=== PATIENT | female | born 1975 | race African-American/Black ===

== ENCOUNTER 2020-08-20 23:00 | Inpatient (IN) | payer OTHER, MEDICARE, MEDICAID ==
[2020-08-20] MEDS ORDERED: Norepinephrine 8 MG/0.9% NS 250 ML ONE (23:07)
[2020-08-20 23:21] LABS: #Eosinphils 0.1 thou/uL (0.0-0.7); #Lymphocytes 1.5 thou/uL (1.20-3.40); #Monocytes 1.6 thou/uL (0.11-0.59); %Basophils 0.1 % (0.0-1.0); %Eosinophils 0.5 % (0.0-10.0); %Lymphocytes 11.5 % (21.0-51.0); %Monocytes 11.8 % (0.0-10.0); %Neutrophils 76.1 % (42.0-75.0); Hemoglobin 11.2 g/dL (12.0-16.0); Mean Corpuscular HGB CONC 32.4 g/dL (32.0-36.0); Mean Corpuscular Hemoglobin 30.7 pg (27.0-31.0); Mean Corpuscular Volume 94.8 fL (78.0-98.0); Mean Platelet Volume 7.8 fL (7.4-10.4); Platelet Count 257 thou/uL (130-400); RBC Distribution Width 12.4 % (11.5-14.5); Red Blood Cell (RBC) Count 3.66 mill/uL (4.20-5.40); White Blood Cell (WBC) Count 13.1 thou/uL (4.8-10.8)
[2020-08-20 23:24] LABS: Bacteria/HPF None Seen HPF (None Seen); Bilirubin Negative (Negative); Blood, Urine 1+ (Negative); Clarity Clear (Clear); Glucose, Urine (Dipstick) Normal (Negative); Ketone, Urine Negative (Negative); Leukocyte Negative Leu/uL (Negative); Mucous/LPF Rare LPF (<2+); Nitrite Negative (Negative); Protein, Urine (Dipstick) 70 mg/dL (Neg-Trace); Specific Gravity, Urine 1.044 (1.002-1.036); Squamous Epithelial 0-3 HPF (0-3); pH, Urine 5.5 (5.0-9.0)
[2020-08-20 23:32] LABS: INR-International Normal Ratio 1.1; PTT 23.1 sec (22.9-36.1); Prothrombin Time 13.8 sec (12.0-14.7)
[2020-08-20 23:40] LABS: ALT (SGPT) 34 U/L (8-55); AST (SGOT) 56 U/L (5-34); Albumin 3.3 g/dL (3.5-5.0); Alkaline Phosphatase 54 U/L (40-110); Anion Gap 18 mmol/L (10-20); BUN (Urea Nitrogen) 14 mg/dL (7.0-18.7); Bilirubin, Total 1.1 mg/dL (0.2-1.2); Calc. Creatinine Clearance 0 mL/min (70-130); Calcium 8.1 mg/dL (7.8-10.44); Carbon Dioxide 17 mmol/L (22-29); Chloride 108 mmol/L (98-107); Glucose 160 mg/dL (70-105); Potassium 4.1 mmol/L (3.5-5.1); Protein, Total 6.3 g/dL (6.0-8.3); Sodium 139 mmol/L (136-145)
[2020-08-20] MEDS ORDERED: Norepinephrine 8 MG/0.9% NS 250 ML IVPB SCH (23:45)
[2020-08-21 00:01] LABS: SARS-CoV-2 NAA Rapid Test Not Detected (NotDetected)
[2020-08-21 00:02] LABS: Amphetamine Not Detected (NotDetected); Barbiturates Screen Not Detected (NotDetected); Benzodiazepine Screen Not Detected (NotDetected); Cocaine Metabolite Screen Not Detected (NotDetected); Medtox Control Line Valid? VALID (VALID); Medtox Reader # READER 4; Methadone Not Detected (NotDetected); Methamphetamine Not Detected (NotDetected); Opiate Screen Detected (NotDetected); Oxycodone Screen Not Detected (NotDetected); Phencyclidine (PCP) Not Detected (NotDetected); THC/Cannabinoid Screen Not Detected (NotDetected); Tricyclic Screen Not Detected (NotDetected)
[2020-08-21] MEDS ORDERED: CEFAZOLIN 1 GM VIAL ONE (00:03)
[2020-08-21] MEDS ORDERED: Morphine 4 MG/ML VIAL ONE (01:44)
[2020-08-21] MEDS ORDERED: HumaLOG 300 UNITS/3 ML VIAL SC PRN (01:45)
[2020-08-21] MEDS ORDERED: Dextrose 5% in Water 1,000 ML IV PRN (01:45)
[2020-08-21] MEDS ORDERED: Dextrose 50% Abboject 50 ML SYRINGE SLOW IVP PRN (01:45)
[2020-08-21] MEDS ORDERED: hydrALAZINE 20 MG/ML VIAL SLOW IVP PRN (01:45)
[2020-08-21] MEDS ORDERED: Ondansetron PF 4 MG/2 ML Vial IVP PRN (01:45)
[2020-08-21] MEDS ORDERED: Ondansetron ODT 4 MG TAB PO PRN (01:45)
[2020-08-21] MEDS: Sodium Chloride 0.9% 1,000 ML IV SCH ×3 (01:56→16:07)
[2020-08-21] MEDS: HumaLOG 300 UNITS/3 ML VIAL SC PRN (02:02)
[2020-08-21] MEDS: Morphine 2 MG/ML VIAL SLOW IVP PRN ×4 (03:55→20:03)
[2020-08-21 04:13] LABS: #Lymphocytes 1.1 thou/uL (1.20-3.40); #Monocytes 1.5 thou/uL (0.11-0.59); #Neutrophils 10.6 thou/uL (1.40-6.50); %Eosinophils 0.1 % (0.0-10.0); %Lymphocytes 8.3 % (21.0-51.0); %Monocytes 11.1 % (0.0-10.0); %Neutrophils 80.5 % (42.0-75.0); Anion Gap 20 mmol/L (10-20); BUN (Urea Nitrogen) 13 mg/dL (7.0-18.7); Calc. Creatinine Clearance 109 mL/min (70-130); Calcium 8.3 mg/dL (7.8-10.44); Carbon Dioxide 13 mmol/L (22-29); Chloride 111 mmol/L (98-107); Glucose 143 mg/dL (70-105); Hemoglobin 12.1 g/dL (12.0-16.0); Mean Corpuscular HGB CONC 33.1 g/dL (32.0-36.0); Mean Corpuscular Hemoglobin 30.3 pg (27.0-31.0); Mean Corpuscular Volume 91.4 fL (78.0-98.0); Mean Platelet Volume 8.2 fL (7.4-10.4); Platelet Count 256 thou/uL (130-400); Potassium 3.7 mmol/L (3.5-5.1); RBC Distribution Width 14.4 % (11.5-14.5); Sodium 140 mmol/L (136-145); White Blood Cell (WBC) Count 13.1 thou/uL (4.8-10.8)
[2020-08-21] MEDS ORDERED: Morphine 4 MG/ML VIAL SLOW IVP PRN (05:30)
[2020-08-21 05:52] LABS: Magnesium 1.7 mg/dL (1.6-2.6); Phosphorus 2.7 mg/dL (2.3-4.7)
[2020-08-21] MEDS ORDERED: Famotidine 20 MG TAB PO SCH (09:00)
[2020-08-21] MEDS ORDERED: Phenylephrine 10 MG/ML VIAL ONE (09:08)
[2020-08-21] MEDS ORDERED: HYDROmorphone 0.5 MG/0.5 ML SYRINGE ONE (09:08)
[2020-08-21] MEDS ORDERED: Fentanyl 100 MCG/2 ML VIAL ONE ×2 (09:08)
[2020-08-21] MEDS ORDERED: Lidocaine 1% PF 5 ML VIAL ONE (09:42)
[2020-08-21] MEDS ORDERED: Rocuronium Bromide 10 MG/ML (10ML VIAL) ONE (09:42)
[2020-08-21] MEDS ORDERED: Dexamethasone 20 MG/5 ML VIAL ONE (09:42)
[2020-08-21] MEDS ORDERED: Ondansetron PF 4 MG/2 ML Vial ONE ×2 (09:42)
[2020-08-21] MEDS ORDERED: PROPOFOL 200 MG/20 ML VIAL ONE (09:42)
[2020-08-21] MEDS ORDERED: Thrombin 5000 UNITS/5 ML VIAL ONE (10:17)
[2020-08-21] MEDS ORDERED: EPINEPHrine 1 MG/ML AMP ONE (10:17)
[2020-08-21] MEDS ORDERED: Bacitracin Zinc Ointment 30 gm TUBE ONE (10:17)
[2020-08-21] MEDS ORDERED: Neomycin-Polymyxin 1 ML AMP ONE (10:17)
[2020-08-21] MEDS ORDERED: Bupivacaine PF 0.5% 30 ML VIAL ONE (10:17)
[2020-08-21] MEDS ORDERED: Rocuronium Bromide 50 MG/5 ML VIAL ONE ×2 (11:55→14:22)
[2020-08-21] MEDS: CEFAZOLIN 2 GM in Premix Bag 1 BAG IVPB SCH (16:13)
[2020-08-21 16:20] LABS: Actual Bicarbonate (HCO3a) 21.9 mEq/L (22-28); Base Excess (BEa) -2.4 mEq/L (-2.0 to +3.0); CO2 Tension 35.8 mmHg (35.0-45.0); Calcium, Ionized (arterial) 1.02 mmol/L (1.12-1.30); Carboxyhemoglobin (COHb) 0.4 gm% (0.0-3.0); Hemoglobin (Hb) 11.2 g/dL (12.0-16.0); O2 Tension (PaO2), arterial 76.7 mmHg (80.0-100.0); Potassium - ABG Lab 3.74 mmol/L (3.70-5.30)
[2020-08-21 16:22] LABS: Puncture Site Arterial Line
[2020-08-21] MEDS ORDERED: Fentanyl BOLUS 250 ML IVPB PRN (16:30)
[2020-08-21] MEDS ORDERED: Propofol BOLUS 1,000 MG/100 ML VIAL IV PRN (16:30)
[2020-08-21] MEDS ORDERED: DISCONTINUE PREVIOUS NARCOTIC PAIN MEDICATIONS AND BENZODIAZEPINES FS SCH (16:30)
[2020-08-21] MEDS ORDERED: Propofol 1,000 MG/100 ML VIAL IV ONE (16:30)
[2020-08-21] MEDS ORDERED: Sodium Chloride 0.9% 500 ML IV SCH (18:00)
[2020-08-21] MEDS ORDERED: Calcium Chloride 13.6 MEQ in Sodium Chloride 0.9% 100 ML IVPB SCH (18:00)
[2020-08-21 18:17] LABS: Hemoglobin 10.7 g/dL (12.0-16.0); Platelet Count 227 thou/uL (130-400)
[2020-08-21 18:52] LABS: Anion Gap 12 mmol/L (10-20); BUN (Urea Nitrogen) 17 mg/dL (7.0-18.7); Calc. Creatinine Clearance 95 mL/min (70-130); Carbon Dioxide 22 mmol/L (22-29); Chloride 112 mmol/L (98-107); Glucose 179 mg/dL (70-105); Magnesium 1.6 mg/dL (1.6-2.6); Phosphorus 4.2 mg/dL (2.3-4.7); Potassium 3.6 mmol/L (3.5-5.1); Sodium 142 mmol/L (136-145)
[2020-08-21] MEDS ORDERED: Fentanyl CADD 100 ML ONE (20:41)
[2020-08-21] MEDS: Pantoprazole 40 MG VIAL IVP SCH (21:01)
[2020-08-21] MEDS: Fentanyl CADD 100 ML IV SCH (21:02)
[2020-08-21] MEDS: Lorazepam 2 MG/ML VIAL SLOW IVP PRN (21:23)
[2020-08-21] MEDS ORDERED: Hydrocortisone Sod Succ/PF 100 mg/2 ml Vial IVP SCH (21:30)
[2020-08-21] MEDS ORDERED: Magnesium Sulfate 3 GM in Sodium Chloride 0.9% 250 ML 250 ML IVPB SCH (22:00)
[2020-08-22] MEDS: CEFAZOLIN 2 GM in Premix Bag 1 BAG IVPB SCH ×3 (00:26→16:31)
[2020-08-22] MEDS: Sodium Chloride 0.9% 1,000 ML IV SCH ×4 (00:26→20:59)
[2020-08-22] MEDS: Hydrocortisone Sod Succ/PF 100 mg/2 ml Vial IVP SCH ×4 (00:27→18:09)
[2020-08-22] MEDS ORDERED: Sodium Chloride 0.9% 500 ML IV SCH ×2 (02:15→21:30)
[2020-08-22] MEDS: Lorazepam 2 MG/ML VIAL SLOW IVP PRN ×2 (02:50→16:31)
[2020-08-22 04:08] LABS: #Monocytes 1.4 thou/uL (0.11-0.59); #Neutrophils 11.7 thou/uL (1.40-6.50); %Lymphocytes 6.9 % (21.0-51.0); %Monocytes 9.7 % (0.0-10.0); %Neutrophils 83.3 % (42.0-75.0); Hemoglobin 9.3 g/dL (12.0-16.0); Mean Corpuscular HGB CONC 34.1 g/dL (32.0-36.0); Mean Corpuscular Hemoglobin 31.4 pg (27.0-31.0); Mean Corpuscular Volume 92.2 fL (78.0-98.0); Mean Platelet Volume 8.2 fL (7.4-10.4); Platelet Count 177 thou/uL (130-400); RBC Distribution Width 14.6 % (11.5-14.5); Red Blood Cell (RBC) Count 2.95 mill/uL (4.20-5.40)
[2020-08-22 04:30] LABS: Anion Gap 11 mmol/L (10-20); BUN (Urea Nitrogen) 18 mg/dL (7.0-18.7); Calc. Creatinine Clearance 105 mL/min (70-130); Calcium 7.7 mg/dL (7.8-10.44); Carbon Dioxide 21 mmol/L (22-29); Chloride 114 mmol/L (98-107); Glucose 158 mg/dL (70-105); Magnesium 2.7 mg/dL (1.6-2.6); Phosphorus 4.4 mg/dL (2.3-4.7); Potassium 3.4 mmol/L (3.5-5.1); Sodium 143 mmol/L (136-145)
[2020-08-22] MEDS ORDERED: Midodrine HCl 5 MG TAB PO SCH ×2 (08:00→14:00)
[2020-08-22] MEDS: Pantoprazole 40 MG VIAL IVP SCH ×2 (08:14→20:51)
[2020-08-22] MEDS: DOPamine 400 MG/D5W 250 ML 250 ML IVPB SCH ×2 (09:04→21:13)
[2020-08-22] MEDS ORDERED: Sterile Water 10 ML ONE (09:26)
[2020-08-22] MEDS ORDERED: Vecuronium 10 MG VIAL IVP SCH (09:30)
[2020-08-22] MEDS: Propofol 1,000 MG/100 ML VIAL IV PRN (13:17)
[2020-08-22 13:50] VITALS: BMI 33.6
[2020-08-22] MEDS: Fentanyl CADD 100 ML IV SCH (14:37)
[2020-08-22] MEDS: HumaLOG 300 UNITS/3 ML VIAL SC PRN (14:52)
[2020-08-22] MEDS: Morphine 2 MG/ML VIAL SLOW IVP PRN (15:11)
[2020-08-23] MEDS: Lorazepam 2 MG/ML VIAL SLOW IVP PRN ×2 (00:42→03:51)
[2020-08-23] MEDS: CEFAZOLIN 2 GM in Premix Bag 1 BAG IVPB SCH ×2 (00:44→08:32)
[2020-08-23] MEDS: Hydrocortisone Sod Succ/PF 100 mg/2 ml Vial IVP SCH ×2 (00:45→06:03)
[2020-08-23] MEDS ORDERED: Fentanyl CADD 100 ML ONE (03:25)
[2020-08-23] MEDS: Fentanyl CADD 100 ML IV SCH (03:34)
[2020-08-23 05:32] LABS: #Lymphocytes 1.4 thou/uL (1.20-3.40); #Monocytes 1.7 thou/uL (0.11-0.59); #Neutrophils 11.7 thou/uL (1.40-6.50); %Basophils 0.1 % (0.0-1.0); %Eosinophils 0.1 % (0.0-10.0); %Lymphocytes 9.3 % (21.0-51.0); %Monocytes 11.6 % (0.0-10.0); %Neutrophils 78.9 % (42.0-75.0); Hemoglobin 9.7 g/dL (12.0-16.0); Mean Corpuscular HGB CONC 33.1 g/dL (32.0-36.0); Mean Corpuscular Hemoglobin 31.1 pg (27.0-31.0); Mean Corpuscular Volume 93.8 fL (78.0-98.0); Mean Platelet Volume 8.1 fL (7.4-10.4); Platelet Count 213 thou/uL (130-400); RBC Distribution Width 14.5 % (11.5-14.5); Red Blood Cell (RBC) Count 3.12 mill/uL (4.20-5.40); White Blood Cell (WBC) Count 14.8 thou/uL (4.8-10.8)
[2020-08-23 06:01] LABS: Anion Gap 12 mmol/L (10-20); BUN (Urea Nitrogen) 13 mg/dL (7.0-18.7); Calc. Creatinine Clearance 150 mL/min (70-130); Calcium 7.3 mg/dL (7.8-10.44); Carbon Dioxide 21 mmol/L (22-29); Chloride 115 mmol/L (98-107); Glucose 139 mg/dL (70-105); Magnesium 2.3 mg/dL (1.6-2.6); Phosphorus 2.2 mg/dL (2.3-4.7); Potassium 3.7 mmol/L (3.5-5.1); Sodium 144 mmol/L (136-145)
[2020-08-23] MEDS: Sodium Chloride 0.9% 1,000 ML IV SCH (06:03)
[2020-08-23] MEDS: Propofol 1,000 MG/100 ML VIAL IV PRN (06:04)
[2020-08-23 07:51] VITALS: BP 117/51
[2020-08-23] MEDS: Pantoprazole 40 MG VIAL IVP SCH (08:32)
[2020-08-23] MEDS: DOPamine 400 MG/D5W 250 ML 250 ML IVPB SCH (08:38)
[2020-08-23 11:39] VITALS: TEMP 98
== END 2020-08-23 10:00 | disposition short-term general hospital (02) | DRG 957 ==
LOC: ERS 23:00 → UNDOADMIN 23:43 → CCU 23:43
PROVIDERS: ADMIT Specialist; ATTEND Specialist
PROC: 30233N1 Transfusion of Nonautologous Red Blood Cells into Peripheral Vein, Percutaneous Approach (ICD-10-PCS; 2020-08-20)
PROC: 3E033XZ Introduction of Vasopressor into Peripheral Vein, Percutaneous Approach (ICD-10-PCS; 2020-08-20)
PROC: 0PS304Z Reposition Cervical Vertebra with Internal Fixation Device, Open Approach (ICD-10-PCS; principal; 2020-08-21)
PROC: 0PS404Z Reposition Thoracic Vertebra with Internal Fixation Device, Open Approach (ICD-10-PCS; 2020-08-21)
PROC: 0RG40A0 Fusion of Cervicothoracic Vertebral Joint with Interbody Fusion Device, Anterior Approach, Anterior Column, Open Approach (ICD-10-PCS; 2020-08-21)
PROC: 0RG10A0 Fusion of Cervical Vertebral Joint with Interbody Fusion Device, Anterior Approach, Anterior Column, Open Approach (ICD-10-PCS; 2020-08-21)
PROC: 0RG60A0 Fusion of Thoracic Vertebral Joint with Interbody Fusion Device, Anterior Approach, Anterior Column, Open Approach (ICD-10-PCS; 2020-08-21)
PROC: 0RB50ZZ Excision of Cervicothoracic Vertebral Disc, Open Approach (ICD-10-PCS; 2020-08-21)
PROC: 0RB30ZZ Excision of Cervical Vertebral Disc, Open Approach (ICD-10-PCS; 2020-08-21)
PROC: 0RB90ZZ Excision of Thoracic Vertebral Disc, Open Approach (ICD-10-PCS; 2020-08-21)
PROC: 5A1945Z Respiratory Ventilation, 24-96 Consecutive Hours (ICD-10-PCS; 2020-08-21)
PROC: 02H633Z Insertion of Infusion Device into Right Atrium, Percutaneous Approach (ICD-10-PCS; 2020-08-22)
DX: S12.690A Other displaced fracture of seventh cervical vertebra, initial encounter for closed fracture (principal); S06.329A Contusion and laceration of left cerebrum with loss of consciousness of unspecified duration, initial encounter; R57.8 Other shock; S14.107A Unspecified injury at C7 level of cervical spinal cord, initial encounter; S24.101A Unspecified injury at T1 level of thoracic spinal cord, initial encounter; J96.00 Acute respiratory failure, unspecified whether with hypoxia or hypercapnia; S22.019A Unspecified fracture of first thoracic vertebra, initial encounter for closed fracture; G82.20 Paraplegia, unspecified; S06.0X9A Concussion with loss of consciousness of unspecified duration, initial encounter; D62 Acute posthemorrhagic anemia; E87.6 Hypokalemia; M53.2X3 Spinal instabilities, cervicothoracic region; Z20.822 Contact with and (suspected) exposure to COVID-19; V13.4XXA Pedal cycle driver injured in collision with car, pick-up truck or van in traffic accident, initial encounter; Z98.890 Other specified postprocedural states
CPT/HCPCS: 36415; 36416; 36430; 71045; 74018; 76000; 80048; 80053; 80306; 81001; 82533; 82805; 83605; 83690; 83735; 84100; 85025; 85610; 85730; 86850; 86900; 86901; 93005; 94002; 94003; 96365; 96375; C1713; C1768; C1776; C9113; G0390; J0171; J0690; J1100; J1170; J1265; J1720; J1815; J2060; J2270; J2370; J2405; J2704; J3010; J3475; J3490; J7030; J7050; P9016; P9045; S0020; U0002; U0005